=== PATIENT | male | born 1980 | race Caucasian/White ===

== ENCOUNTER 2023-10-26 21:01 | Emergency (ER) | payer BC, SELFPAY ==
[2023-10-26 21:55] LABS: % Basophils 0.2 % (0-2); % Eosinophils 0.1 % (0-6); % Immature Granulocytes 0.8 % (0-0.5); % Lymphocytes 8.7 % (20.5-51.1); % Monocytes 0.9 % (1.7-9.3); % Neutrophils 89.3 % (42.2-75.2); Absolute Immature Granulocytes 0.1 10^3/uL (0-0.05); Absolute Lymphocytes 1.3 10^3/uL (1.2-3.4); Absolute Monocytes 0.1 10^3/uL (0.1-0.6); Absolute Neutrophils 13.1 10^3/uL (1.4-6.5); Hematocrit 40.6 % (39.0-52.0); Mean Corpuscular Hgb 19.7 pg (27.0-31.0); Mean Corpuscular Volume 61.4 fL (80.0-94.0); Mean Platelet Volume 10.2 fL (7.4-10.4); Nucleated Red Blood Cells % 0.2 % (-); Platelet Count 245 10^3/uL (130-400); Red Blood Cell Count 6.61 10^6/uL (4.70-6.10); Red Cell Dist. Width 17.2 % (11.5-14.5); White Blood Cell Count 14.6 10^3/uL (4.8-10.8)
[2023-10-26 22:13] LABS: Troponin I < 0.012 ng/ml
[2023-10-26 22:15] LABS: ALT (SGPT) 26 U/L (0-50); AST (SGOT) 25 U/L (17-59); Albumin 4.8 g/dl (3.5-5.0); Alkaline Phosphatase 96 U/L (38-126); Blood Urea Nitrogen 15 mg/dl (9-20); Calcium 10.1 mg/dl (8.4-10.2); Carbon Dioxide 24 mmol/L (22-30); Chloride 97 mmol/L (98-107); Glucose 547 mg/dl (70-99); Sodium 135 mmol/L (135-145); Total Bilirubin 0.6 mg/dl (0.2-1.3); Total Protein 7.1 g/dl (6.3-8.2); eGFR > 60.00
[2023-10-27 00:05] VITALS: BP 123/80
[2023-10-27 00:06] VITALS: BP 123/80
[2023-10-27] MEDS: NSS 1000 IV ×2 (00:15→01:33)
[2023-10-27 00:32] LABS: Glucose - Point of Care 345 mg/dl (70-99)
[2023-10-27 01:00] VITALS: BP 114/69
--- NOTE | 2023-10-27 01:01 | ED.GENMED ---
History of Present Illness
General
Chief Complaint: Blood Sugar Problem
Source: patient
Exam Limitations: none
Time Seen by Provider: 10/27/23 00:31
Nursing documentation reviewed up to this point in time: agreed with
History of Present Illness
History of Present Illness:
This a pleasant 42-year-old male that presents with high blood sugar. He was recently diagnosed with type 2 diabetes and started on metformin 500 mg p.o. twice daily. Today he had an epidural injection for low back pain. It was steroid. Tonight
he was checking his father's blood sugar and noted it to be slightly elevated. He joked to his dad that since he was asymptomatic his blood sugar would beat it. When he took his blood sugar his reading was over 500. He did not have any symptoms
so he called his primary care provider who advised him to come into the emergency department for evaluation. Upon arrival his blood sugar 547. Patient did recall a brief episode of blurry vision and some chest pressure earlier in the day. Denies
fever, chills, nausea or vomiting.
Review of Systems
Review of Systems
Allergies reviewed?: Yes
All Other Systems: ROS reviewed and negative except as documented in HPI and ROS
Constitutional: Reports no symptoms
EENT: Reports no symptoms
Respiratory: Reports no symptoms
Cardiac: Reports chest pain
ABD/GI: Denies abdominal pain, nausea, vomiting, diarrhea or bloody stools
: Reports no symptoms
Musculoskeletal: Reports no symptoms
Skin: Reports no symptoms
Neurological: Reports no symptoms
Endocrine: Reports no symptoms
Hematologic/Lymphatic: Reports no symptoms
Psychiatric: Reports no symptoms
Phy Exam
General Physical Exam
General Presentation: well appearing and no apparent distress
General Skin: warm and dry
General Habitus: normal
General Mental: alert
General Hydration: appears well hydrated
ENT Exam
ENT Exam: EOMI, pharynx normal, neck supple and normocephalic
Eye Exam
Eye Exam: PERRL, cornea clear and conjunctiva normal
Cardiovascular Exam
Cardiovascular Exam: regular rate/rhythm, no edema, no murmur and normal peripheral pulses
Pulmonary Exam
Pulmonary Exam: lungs clear, no respiratory distress, no rales, no crackles, no rhonchi, no stridor, no wheezing and no cough
Gastrointestinal Exam
Gastrointestinal Exam: normal bowel sounds, non tender, soft, no organomegaly, no pulsatile mass and non distended
Neurological Exam
Neurological Exam: alert, oriented x3, no motor deficits and speech normal
Musculoskeletal Exam
Musculoskeletal Exam: full ROM and no edema
Skin Exam
Skin Exam: normal color, warm/dry, no rash and no petechia
Psychiatric Exam
Psychiatric Exam: normal mood/affect
Course
Orders/Labs/Results
Orders:
Orders
10/26/23 21:10
Electrocardiogram (*1) Urgent
Reason for Study: Chest Pain
EKG- Treatment ONCE
10/26/23 21:29
B-Hydroxybutyrate Urgent
Comment: ADD ON
Complete Blood Count/With Diff Urgent
Comprehensive Metabolic Panel Urgent
Troponin I Urgent
10/26/23 22:18
Add On- LAB Urgent
Tests Added?: b-hydroxybutyrate
10/27/23 00:15
0.9% Sodium Chloride 1000 ml [Nss] 1,000 ml IV BOLUS
10/27/23 01:33
0.9% Sodium Chloride 1000 ml [Nss] 1,000 ml IV BOLUS
Abnormal Lab Results
10/26/23 10/27/23 10/27/23
21:29 00:29 01:28
WBC 14.6 H 10^3/uL
(4.8-10.8)
RBC 6.61 H 10^6/uL
(4.70-6.10)
MCV 61.4 L fL
(80.0-94.0)
MCH 19.7 L pg
(27.0-31.0)
MCHC 32.0 L g/dL
(33.0-37.0)
RDW 17.2 H %
(11.5-14.5)
Abs Immat Gran (auto) 0.1 H 10^3/uL
(0-0.05)
Absolute Neuts (auto) 13.1 H 10^3/uL
(1.4-6.5)
Immature Gran % 0.8 H %
(0-0.5)
Neutrophils % 89.3 H %
(42.2-75.2)
Lymphocytes % 8.7 L %
(20.5-51.1)
Monocytes % 0.9 L %
(1.7-9.3)
Chloride 97 L mmol/L
(98-107)
Glucose 547 H* mg/dl
(70-99)
POC Glucose 345 H mg/dl 335 H mg/dl
(70-99) (70-99)
10/27/23 10/27/23
02:37 04:02
WBC
RBC
MCV
MCH
MCHC
RDW
Abs Immat Gran (auto)
Absolute Neuts (auto)
Immature Gran %
Neutrophils %
Lymphocytes %
Monocytes %
Chloride
Glucose
POC Glucose 293 H mg/dl 284 H mg/dl
(70-99) (70-99)
10/26/23 21:29
10/26/23 21:29
Vital Signs
Initial and Last Documented VS:
Initial Vital Signs
Temp Pulse Resp Pulse Ox
97.7 F 97 18 96
10/26/23 21:06 10/26/23 21:06 10/26/23 21:06 10/26/23 21:06
Last Documented Vital Signs
Temp Pulse Resp BP Pulse Ox
97.8 F 84 14 114/69 95
10/27/23 00:06 10/27/23 01:30 10/27/23 01:30 10/27/23 01:00 10/27/23 01:30
MDM/Problems Addressed
Differential Diagnosis Includes:
DKA, hyperglycemia
MDM/Problems Addressed:
42-year-old male with elevated blood sugar after steroid injection.
Chronic conditions affecting care: DM
Acute Exacerbation and/or Progression of Chronic Illness: DM
*Pulse Oximetry
Patient hypoxic: no
*Critical Care Note
Total Time (30-74mins, 75-104mins- exclusive of procedures): Not Applicable
Update Note
Update Note:
10/27/2023 0419 AM: Patient is resting comfortably mentating appropriately blood sugar did not drop any further. Patient to be discharged home. He will continue with blood glucose monitoring.
ED Attending Note
-
Portions of this chart may have been created with voice recognition software.� Occasional wrong word or��sound alike� substitutions may have occurred due to the inherent limitations of voice recognition software.
Discharge Plan
Departure
Patient Disposition: Home (Routine Discharge)
Date of Disposition: 10/27/23
Time of Disposition: 04:19
Patient with high blood pressure during this ER visit?: No
Discharge Problem:
Acute hyperglycemia
Instructions: Type 2 Diabetes (DC), BLOOD PRESSURE
Referrals:
PRIVATE,PHYSICIAN [Family Provider] -
Activity Restrictions/Additional Instructions:
It was a pleasure meeting you and taking part in your care. We hope for your continued healing and wellness.
Please read discharge instructions in their entirety. However, they are for general education and may not describe your exact diagnosis at discharge. Information on your ER visit and medical conditions were discussed with you along with appropriate
follow up information...
If indicated, please take your medications as instructed and indicated on discharge paperwork.
Please schedule a follow up appointment as directed. Call to schedule an appointment
Please return to the emergency department with ANY change in, persisting, or worsening of symptoms. If any of your symptoms do not improve, or persist, or become more severe within 6-12 hours, please return to the emergency department for further
care.
Please return to the emergency department if you develop a headache, neck pain/stiffness, fever greater than 100.4F, chest pain, shortness of breath, persistent nausea, vomiting, slurred speech, difficulty walking, numbness/tingling, weakness, signs
of infection or any other symptoms that are worrisome to you.
If you have any questions or concerns please do not hesitate to call the Hospital at or E-mail me directly at [email or web address]
Interventions
Interventions:
*Risk Screen - Suicide Last Done: 10/26/23 21:06
*General Assessment Last Done: 10/26/23 21:06
*Neglect/Abuse Screening Last Done: 10/26/23 21:06
ED- Neurological Assessment Last Done: 10/27/23 00:40
Discharge Date and Time
Print Language: BELARUSIAN
[2023-10-27 01:30] LABS: Glucose - Point of Care 335 mg/dl (70-99)
[2023-10-27 02:39] LABS: Glucose - Point of Care 293 mg/dl (70-99)
[2023-10-27 04:04] LABS: Glucose - Point of Care 284 mg/dl (70-99)
== END 2023-10-27 04:38 | disposition home or self-care (01) ==
LOC: EMR 21:01
PROVIDERS: Emergency Medicine; EMERGENCY PHYSICIAN Student in an Organized Health Care Education/Training Program
DX: E11.65 Type 2 diabetes mellitus with hyperglycemia (principal); R07.89 Other chest pain; H53.8 Other visual disturbances; M54.50 Low back pain, unspecified; Z98.890 Other specified postprocedural states
CPT/HCPCS: 99284; 96360; 96361; 80053; 82010; 82962; 84484; 85025; 93005